=== PATIENT | male | born 1965 | race Caucasian/White ===

== ENCOUNTER 2021-03-15 07:42 | Emergency (ER) | payer MEDICAID ==
[~2021-03-15] VITALS: Ht 177.8 cm; Wt 81.8 kg
[~2021-03-15 07:42] MED LIST: ALBU8HFA PO; CARI350T PO; NO HOME MEDS
[2021-03-15 07:51] VITALS: BP 159/91
[2021-03-15] MEDS ORDERED: METH4TAB3 PO (07:58)
== END 2021-03-15 08:09 | disposition home or self-care (01) ==
LOC: ER 07:43
DX: T78.40XA Allergy, unspecified, initial encounter (principal); Z88.5 Allergy status to narcotic agent; Z88.8 Allergy status to other drugs, medicaments and biological substances; Z79.899 Other long term (current) drug therapy
CPT/HCPCS: 99283

== ENCOUNTER 2021-03-17 07:57 | Emergency (ER) | payer MEDICAID ==
[~2021-03-17] VITALS: Ht 177.8 cm; Wt 79.5 kg
[~2021-03-17 07:57] MED LIST changes: +METH4TAB3 PO
[2021-03-17 08:02] VITALS: BP 155/100
[2021-03-17] MEDS ORDERED: triamcinolone acetonide 40mg/ml inj IM ONE (08:35)
== END 2021-03-17 09:14 | disposition home or self-care (01) ==
LOC: ER 07:58
DX: T78.49XA Other allergy, initial encounter (principal); G89.29 Other chronic pain; F12.90 Cannabis use, unspecified, uncomplicated; Z98.890 Other specified postprocedural states; Z72.89 Other problems related to lifestyle; Z88.5 Allergy status to narcotic agent; Z88.8 Allergy status to other drugs, medicaments and biological substances; Z79.899 Other long term (current) drug therapy; X58.XXXA Exposure to other specified factors, initial encounter
CPT/HCPCS: 96372; 99283; J3301